=== PATIENT | male | born 1945 | race Caucasian/White ===

== ENCOUNTER → 2018-06-03 | Outpatient (REF) | payer MEDICARE ==
[~2018-06-03] MED LIST: B COMPLE1 PO; CLARITIN10 MG PO; MULTIVITAM10 PO; SELENIMIN PO; [UNRECOGNIZED DRUG - OTHER] PO
[2018-06-03 11:14] LABS: HEMATOCRIT 45.6 % (39.0-50.0); MEAN CELL VOLUME 93.4 fL CALC (80.0-100.0); MEAN CORPUSCULAR HGB 30.7 pG CALC (26.0-32.0); MEAN CORPUSCULAR HGB CONC 32.9 g/L CALC (32.0-36.0); RED BLOOD COUNT 4.88 mill/uL (4.70-6.10); RED CELL DISTRI WIDTH 11.8 % (11.5-15.5)
[2018-06-03 11:38] LABS: ALBUMIN 4.7 g/dL (3.2-5.0); ALKALINE PHOSPHATASE 55 u/l (38-126); ANION GAP 16 (6-22 (CALC)); BILIRUBIN, TOTAL 0.4 mg/dL (0.0-1.4); BUN 8 mg/dL (8-23); BUN/CREATININE RATIO 10 (12-20 (CALC)); CALCULATED LDLCHOLESTEROL 99 mg/dL (62-129 (CALC)); CARBON DIOXIDE 29 mmol/l (22-30); CHLORIDE 94 mmol/l (95-108); CHOLESTEROL HDL RATIO 2.8 (<4.4 (CALC)); CREATININE 0.8 mg/dL (0.7-1.3); GFR > 60 ML/MIN (>=60 (CALC)); GFR FOR AFR.AMER. > 60 ML/MIN (>=60 (CALC)); HDL CHOLESTEROL 65 mg/dL (>=40); POTASSIUM 4.9 mmol/l (3.5-5.1); SGOT/AST 17 u/l (19-48); SODIUM 134 mmol/l (137-146); TOTAL CHOLESTEROL 179 mg/dl (0-199); TOTAL PROTEIN 7.1 g/dL (6.3-8.2); TOTAL TRIGLYCERIDES 79 mg/dl (30-149); VLDL CHOLESTROL 16 mg/dl (0-38 (CALC))
== END | disposition home or self-care (01) ==
LOC: LAB 10:03
PROVIDERS: ATTEND Internal Medicine
DX: E11.29 Type 2 diabetes mellitus with other diabetic kidney complication (principal); E78.49 Other hyperlipidemia; I10 Essential (primary) hypertension

== ENCOUNTER 2021-10-02 23:33 | Emergency (ER) | payer MEDICARE ==
[~2021-10-02] VITALS: Ht 188 cm; Wt 90.0 kg
[2021-10-02 23:53] VITALS: BP 134/72
[2021-10-03] VITALS (7 sets, daily range): BP systolic 105–140; BP diastolic 60–69
[2021-10-03] MEDS ORDERED: METFORMIN HCL500 M2 PO (00:24)
[2021-10-03] MEDS ORDERED: LOSARTAN POTASS50 MG PO (00:24)
[2021-10-03] MEDS ORDERED: METOPROLOL SUCC50 MG PO (00:25)
[2021-10-03] MEDS ORDERED: FUROSEMIDE20 MG PO (00:26)
[2021-10-03] MEDS ORDERED: PRAVASTATIN10 MG PO (00:26)
[2021-10-03] MEDS ORDERED: LISINOP/HCTZ1 TA1 PO (00:27)
[2021-10-03] MEDS ORDERED: LANTUS SOL100 UNIT/M SC (00:28)
[2021-10-03] MEDS ORDERED: ANORO ELLIPTA 61 AER IN (00:29)
[2021-10-03] MEDS ORDERED: K-TAB8 MEQ PO (00:29)
[2021-10-03] MEDS ORDERED: MULTI VIT PO (00:30)
[2021-10-03] MEDS ORDERED: ZYRTEC10 MG PO (00:30)
[2021-10-03] MEDS ORDERED: SELENIUM200 MC1 PO (00:31)
[2021-10-03] MEDS ORDERED: ASPIRIN81 MG PO (00:31)
[2021-10-03] MEDS ORDERED: STOOL SOFTENER100 M1 PO (00:32)
[2021-10-03 02:11] LABS: HEMATOCRIT 37.7 % (39.0-50.0); HEMOGLOBIN 12.3 g/dl (14.0-18.0)
== END 2021-10-03 03:00 | disposition home or self-care (01) ==
LOC: ED 23:33
PROVIDERS: Family Medicine
DX: L76.21 Postprocedural hemorrhage of skin and subcutaneous tissue following a dermatologic procedure (principal); I10 Essential (primary) hypertension; Y83.8 Other surgical procedures as the cause of abnormal reaction of the patient, or of later complication, without mention of misadventure at the time of the procedure

== ENCOUNTER 2023-05-22 13:32 | Inpatient (IN) | payer MEDICARE ==
[~2023-05-22] VITALS: Ht 182.9 cm; Wt 91.0 kg
[~2023-05-22 13:32] MED LIST changes: +ANORO ELLIPTA 61 AER IN; +ASPIRIN81 MG PO; +FUROSEMIDE20 MG PO; +K-TAB8 MEQ PO; +LANTUS SOL100 UNIT/M SC; +LISINOP/HCTZ1 TA1 PO; +LOSARTAN POTASS50 MG PO; +METFORMIN HCL500 M2 PO; +METOPROLOL SUCC50 MG PO; +MULTI VIT PO; +PRAVASTATIN10 MG PO; +SELENIUM200 MC1 PO; +STOOL SOFTENER100 M1 PO; +ZYRTEC10 MG PO
--- NOTE | 2023-05-22 14:18 | NUR ---
PT ARRIVED TO UNIT VIA WHEELCHAIR TRANSPORT.
[2023-05-22] MEDS ORDERED: KETOROLAC TROMETHAMINE 15 MG/ML SDV IV PRN (14:55)
[2023-05-22] MEDS ORDERED: LISINOPRIL 20 MG/TAB PO SCH (14:56)
[2023-05-22 15:15] LABS: BASO% 0.5 % (0-3); EOS% 3.5 % (0-8); HEMATOCRIT 43.1 % (39.0-50.0); HEMOGLOBIN 13.8 g/dl (14.0-18.0); IMMATURE GRANULOCYTES 0.5 % (0.0-5.0); LYMPH% 19.6 % (15-41); MEAN CELL VOLUME 92.3 fL CALC (80.0-100.0); MEAN CORPUSCULAR HGB 29.6 pG CALC (26.0-32.0); MONO% 9.7 % (2-13); NEUT# 5.69 thou/uL (1.82-7.42); NEUT% 66.2 % (42-76); RED BLOOD COUNT 4.67 mill/uL (4.70-6.10); RED CELL DISTRI WIDTH 12.8 % (11.5-15.5)
[2023-05-22 15:42] LABS: ALBUMIN 4.3 g/dL (3.2-5.0); ALKALINE PHOSPHATASE 72 u/l (38-126); ANION GAP 12 (6-22 (CALC)); BILIRUBIN, TOTAL 0.4 mg/dL (0.2-1.3); BUN 13 mg/dL (8-23); BUN/CREATININE RATIO 13 (12-20 (CALC)); CARBON DIOXIDE 29 mmol/l (22-30); CHLORIDE 98 mmol/l (95-108); GFR FOR AFR.AMER. > 60 ML/MIN (>=60 (CALC)); GFR OTHER RACES > 60 ML/MIN (>=60 (CALC)); POTASSIUM 4.2 mmol/l (3.5-5.1); SGOT/AST 33 u/l (19-48); SODIUM 134 mmol/l (137-146); TOTAL PROTEIN 7.2 g/dL (6.3-8.2)
[2023-05-22] MEDS ORDERED: ALUM & MAG HYDROX-SIMETHICONE 30 ML PO PRN (16:40)
[2023-05-22] MEDS ORDERED: ALBUTEROL SULFATE 2.5 MG VIAL IN PRN (16:40)
[2023-05-22] MEDS ORDERED: ACETAMINOPHEN 325 MG/TAB PO PRN (16:40)
[2023-05-22] MEDS ORDERED: LORazepam 0.5 MG/TAB PO PRN (16:40)
[2023-05-22] MEDS ORDERED: MAGNESIUM HYDROXIDE 30 ML UDC PO PRN (16:40)
[2023-05-22] MEDS ORDERED: DEXTROSE 250 ML IV PRN (16:45)
[2023-05-22] MEDS ORDERED: DEXTROSE 50% 50 ML/SYR IV PRN (16:45)
[2023-05-22] MEDS ORDERED: INSULIN LISPRO 100 UNITS/ML ML SC SCH (17:00)
[2023-05-22] MEDS ORDERED: CEFEPIME HYDROCHLORIDE 2 GM in SODIUM CHLORIDE 0.9% 100 ML IV SCH (17:00)
[2023-05-22] MEDS ORDERED: TAMSULOSIN0.4 MG PO (18:13)
[2023-05-22] MEDS ORDERED: NEBIVOLOL5 MG (18:19)
[2023-05-22] MEDS ORDERED: JARDIANCE25 MG (18:21)
[2023-05-22] MEDS ORDERED: MINOCYCLINE100 MG PO (18:23)
[2023-05-22] MEDS ORDERED: TRELEGY ELLIPTA1 AER (18:25)
--- NOTE | 2023-05-22 20:00 | NUR ---
PT RESTING NO DISTRESS NOTED DURING ASSESSMENT. VS WNL ON RA. FAMILY AT BEDSIDE. PT REPORTS NO PAIN AT THIS TIME. WOUND ON LEFT FOOT AND LEFT LOWER LEG CELLULITIS. WOUND PICTURE TAKEN AND REDNESS OUTLINES WITH PURPLE PEN. IV ABX ONGOING AT THIS TIME. CALL LIGHT WITHIN REACH. PLAN OF CARE ONGOING.
[2023-05-22 20:15] VITALS: BP 134/74
[2023-05-22] MEDS ORDERED: SIMVASTATIN 5 MG TAB PO SCH (21:00)
[2023-05-22] MEDS ORDERED: DOCUSATE CALCIUM 240 MG/CAP PO SCH (21:00)
[2023-05-22] MEDS ORDERED: ENOXAPARIN SODIUM 40 MG/0.4 ML SYR SC SCH (21:00)
--- NOTE | 2023-05-23 | NUR ---
PT RESTING NO DISTRESS NOTED ON EXAM. FAMILY MEMEBER AT BEDSIDE. CALL LIGHT WITHIN REACH. PLAN OF CARE ONGOING.
[2023-05-23 00:44] VITALS: BP 122/65
[2023-05-23 04:11] VITALS: BP 129/62
--- NOTE | 2023-05-23 04:20 | NUR ---
PT RESTING NO DISTRESS NOTED ON EXAM. FAMILY MEMBER AT BEDSIDE. NO PT REPORTED AT THIS TIME. CALL LIGHT WITHIN REACH. PLAN OF CARE ONGOING.
[2023-05-23 05:02] LABS: BASO% 0.5 % (0-3); EOS% 5.8 % (0-8); HEMATOCRIT 40.2 % (39.0-50.0); HEMOGLOBIN 12.9 g/dl (14.0-18.0); IMMATURE GRANULOCYTES 0.5 % (0.0-5.0); LYMPH% 25.2 % (15-41); MEAN CELL VOLUME 92.2 fL CALC (80.0-100.0); MEAN CORPUSCULAR HGB 29.6 pG CALC (26.0-32.0); MEAN CORPUSCULAR HGB CONC 32.1 g/dL CAL (32.0-36.0); MONO% 11.7 % (2-13); NEUT# 3.66 thou/uL (1.82-7.42); NEUT% 56.3 % (42-76); RED BLOOD COUNT 4.36 mill/uL (4.70-6.10); RED CELL DISTRI WIDTH 12.8 % (11.5-15.5)
[2023-05-23 05:19] LABS: ALBUMIN 3.5 g/dL (3.2-5.0); ALKALINE PHOSPHATASE 68 u/l (38-126); ANION GAP 9 (6-22 (CALC)); BILIRUBIN, TOTAL 0.3 mg/dL (0.2-1.3); BUN 14 mg/dL (8-23); BUN/CREATININE RATIO 16 (12-20 (CALC)); CARBON DIOXIDE 28 mmol/l (22-30); CHLORIDE 100 mmol/l (95-108); CREATININE 0.9 mg/dL (0.7-1.3); GFR FOR AFR.AMER. > 60 ML/MIN (>=60 (CALC)); GFR OTHER RACES > 60 ML/MIN (>=60 (CALC)); POTASSIUM 3.5 mmol/l (3.5-5.1); SGOT/AST 33 u/l (19-48); SODIUM 133 mmol/l (137-146); TOTAL PROTEIN 6.1 g/dL (6.3-8.2)
[2023-05-23 07:05] VITALS: BP 157/71
--- NOTE | 2023-05-23 07:34 | NUR ---
PT AOX3, LUNGS CLEAR, NON PRODUCTIVE COUGH WITH DEEP BREATHS, BOWEL SOUNDS PRESENT, LEFT FOOT/LEG REDNESS MARKED WITH SKIN MARKER, FOOT WOUND WRAPPED, PT DENIES PAIN AT THIS TIME. WILL CONTUINE TO MONITOR.
[2023-05-23] MEDS ORDERED: ASPIRIN 81 MG/TAB PO SCH (09:00)
[2023-05-23] MEDS ORDERED: TAMSULOSIN HCL 0.4 MG CAP PO SCH (09:00)
[2023-05-23] MEDS ORDERED: FUROSEMIDE 20 MG/TAB PO SCH (09:00)
[2023-05-23] MEDS ORDERED: INSULIN DETEMIR 100 UNITS/ML SC SCH (09:00)
[2023-05-23] MEDS ORDERED: POTASSIUM CHLORIDE 10 MEQ/TAB PO SCH (09:00)
[2023-05-23] MEDS ORDERED: METOPROLOL SUCCINATE 50 MG/TAB PO SCH (09:00)
[2023-05-23] MEDS ORDERED: LOSARTAN Potassium 50 MG/TAB PO SCH (09:00)
--- NOTE | 2023-05-23 10:26 | NUR ---
DR BECKER AT BEDSIDE DISCUSSING PLAN OF CARE WITH PT AND PT'S .
--- NOTE | 2023-05-23 11:22 | NUR ---
DR HERNANDEZ AT BEDSIDE DISCUSSING PLAN OF CARE WITH PT AND PT'S .
--- NOTE | 2023-05-23 11:35 | NUR ---
VERBAL ORDER TAKEN FROM DR DUMONT FOR BETADINE DRESSING COVERED WITH GAUZE AND WRAPPED WITH KURLEX. PT IS TO BE NPO AT MIDNIGHT.
--- NOTE | 2023-05-23 13:56 | NUR ---
2X2 BETADINE DRESSING APPLIED TO BROKEN BLISTER ON LEFT FOOT COVERED BY DRY GAUZE AND WRAPPED WITH KURLEX. PT TOLERATED WITHOUT ANY COMPLAINTS OF PAIN OR DISCOMFORT. PT SITTING UP IN CHAIR WITH FOOT ELEVATED AT THIS TIME. WILL CONTUINE TO MONITOR.
[2023-05-23 16:22] VITALS: BP 161/84
--- NOTE | 2023-05-23 20:00 | NUR ---
PT RESTING IN CHAIR NO DISTRESS NOTED DURING ASSESSMENT. IV SITE CHECKED AND FLUSHED. CALL LIGHT WITHIN REACH. PLAN OF CARE ONGOING.
[2023-05-23 20:11] VITALS: BP 171/88
[2023-05-24 01:10] VITALS: BP 142/66
--- NOTE | 2023-05-24 04:17 | NUR ---
PT SLEEPING NO DISTRESS NOTED ON EXAM. CALL LIGHT WITHIN REACH. PLAN OF CARE ONGOING.
[2023-05-24 04:29] VITALS: BP 141/61
[2023-05-24 04:37] LABS: BASO% 0.6 % (0-3); EOS% 8.5 % (0-8); HEMATOCRIT 41.3 % (39.0-50.0); HEMOGLOBIN 13.3 g/dl (14.0-18.0); IMMATURE GRANULOCYTES 0.5 % (0.0-5.0); LYMPH% 26.9 % (15-41); MEAN CORPUSCULAR HGB 29.6 pG CALC (26.0-32.0); MEAN CORPUSCULAR HGB CONC 32.2 g/dL CAL (32.0-36.0); NEUT# 3.36 thou/uL (1.82-7.42); NEUT% 52.5 % (42-76); RED BLOOD COUNT 4.49 mill/uL (4.70-6.10); RED CELL DISTRI WIDTH 12.8 % (11.5-15.5)
[2023-05-24 04:53] LABS: ALBUMIN 3.6 g/dL (3.2-5.0); ALKALINE PHOSPHATASE 63 u/l (38-126); ANION GAP 11 (6-22 (CALC)); BILIRUBIN, TOTAL 0.3 mg/dL (0.2-1.3); BUN 11 mg/dL (8-23); BUN/CREATININE RATIO 13 (12-20 (CALC)); CARBON DIOXIDE 26 mmol/l (22-30); CHLORIDE 100 mmol/l (95-108); CREATININE 0.9 mg/dL (0.7-1.3); GFR FOR AFR.AMER. > 60 ML/MIN (>=60 (CALC)); GFR OTHER RACES > 60 ML/MIN (>=60 (CALC)); MAGNESIUM 2.1 mg/dL (1.6-2.3); POTASSIUM 3.8 mmol/l (3.5-5.1); SGOT/AST 33 u/l (19-48); SODIUM 133 mmol/l (137-146); TOTAL PROTEIN 6.2 g/dL (6.3-8.2)
[2023-05-24 07:30] VITALS: BP 158/78
--- NOTE | 2023-05-24 07:35 | NUR ---
pt awake in bed; no apparent distress noted; assessment completed at this time; spouse at bedside; pt alert and oriented; denies pain; no n/v noted; resp even and unlabored; lungs coarse post; skin color wnl; ra; hr reg; weak pedal pulses; ble edema noted; redness noted to lle; abd soft/distended with bs present; no bm noted per story writer; no urine to inspect at this time; #22 to lfa saline locked; no redness or edema noted; dressing to left foot intact; npo; call light within reach; will continue to monitor
--- NOTE | 2023-05-24 11:27 | NUR ---
wound/blister to medial left foot cleansed wtih saline; betadine wet to dry dressing placed; secured with kerlix; will continue to monitor
--- NOTE | 2023-05-24 12:00 | NUR ---
awake in recliner; no apparent distress noted; family at bedside; call light within reach; will continue to monitor
[2023-05-24 14:50] VITALS: BP 148/78
--- NOTE | 2023-05-24 16:00 | NUR ---
pt awake in recliner; offers no complaints; multiple visitors at bedside; iv intact; call light within reach
--- NOTE | 2023-05-24 18:00 | NUR ---
pt with complaints of dressing to left foot too tight; re-dressed as per request; call light within reach
--- NOTE | 2023-05-24 19:00 | NUR ---
PT RESTING IN CHAIR NO DISTRESS NOTED ON ASSESSMENT. VS WNL ON RA. FAMILY AT BEDSIDE. NEW IV PLACED ON LEFT WRIST 22G SL. LEFT FOOT DRESSING CHANGED DUE TO IT FALL OFF. PT REPORTS NO PAIN AT THIS TIME. CALL LIGHT WITHIN REACH. PLAN OF CARE ONGOING.
--- NOTE | 2023-05-25 | NUR ---
PT SLEEPING IN BED NO DISTRESS NOTED ON EXAM. CALL LIGHT WITHIN REACH. PLAN OF CARE ONGOING.
[2023-05-25 03:33] VITALS: BP 171/79
--- NOTE | 2023-05-25 04:00 | NUR ---
PT SLEEPING NO DISTRESS NOTED ON EXAM. CALL LIGHT WITHIN REACH. PLAN OF CARE ONGOING.
[2023-05-25 05:34] LABS: BASO% 0.4 % (0-3); EOS% 7.3 % (0-8); HEMATOCRIT 40.3 % (39.0-50.0); HEMOGLOBIN 13.4 g/dl (14.0-18.0); IMMATURE GRANULOCYTES 0.7 % (0.0-5.0); LYMPH% 29.2 % (15-41); MEAN CELL VOLUME 90.6 fL CALC (80.0-100.0); MEAN CORPUSCULAR HGB 30.1 pG CALC (26.0-32.0); MEAN CORPUSCULAR HGB CONC 33.3 g/dL CAL (32.0-36.0); MONO% 10.2 % (2-13); NEUT# 3.81 thou/uL (1.82-7.42); NEUT% 52.2 % (42-76); RED BLOOD COUNT 4.45 mill/uL (4.70-6.10); RED CELL DISTRI WIDTH 12.6 % (11.5-15.5)
[2023-05-25 05:46] LABS: ALBUMIN 3.6 g/dL (3.2-5.0); ALKALINE PHOSPHATASE 64 u/l (38-126); ANION GAP 9 (6-22 (CALC)); BILIRUBIN, TOTAL 0.2 mg/dL (0.2-1.3); BUN 9 mg/dL (8-23); BUN/CREATININE RATIO 12 (12-20 (CALC)); CARBON DIOXIDE 28 mmol/l (22-30); CHLORIDE 97 mmol/l (95-108); CREATININE 0.8 mg/dL (0.7-1.3); GFR FOR AFR.AMER. > 60 ML/MIN (>=60 (CALC)); GFR OTHER RACES > 60 ML/MIN (>=60 (CALC)); POTASSIUM 4.1 mmol/l (3.5-5.1); SGOT/AST 34 u/l (19-48); SODIUM 131 mmol/l (137-146); TOTAL PROTEIN 6.2 g/dL (6.3-8.2)
--- NOTE | 2023-05-25 06:00 | NUR ---
DRESSING CHANGED LEFT FOOT.
[2023-05-25 06:47] VITALS: BP 158/78
--- NOTE | 2023-05-25 06:55 | NUR ---
REPORT RECEIVED FROM TONNYRN
--- NOTE | 2023-05-25 08:10 | NUR ---
PT RESTING IN SEMI FOWLERS POSITION, A&O X3 AND LITTLE SHELL TRIBE NOTED;RESPIRATIONS EVEN AND UNLABORED ON RA;PT DENIES ANY CURRENT PAIN OR NEEDS;ASSESSMENT COMPLETED AND URINE SAMPLE OBTAINED PER ORDER; IV SITE PATENT;ACCUCHECK 170;PT DENIES ANY ADDITIONAL NEEDS AND IS ENCOURAGED TO CALL FOR ASSISTANCE IF NEEDED;FALL PRECAUTIONS IN PLACE WITH BED IN THE LOWEST POSITION AND CALL LIGHT IN REACH;FREQUENT ROUNDS MADE.
[2023-05-25] MEDS ORDERED: amLODIPine BESYLATE 5 MG/TAB PO SCH (09:00)
--- NOTE | 2023-05-25 11:35 | NUR ---
PT OOB RESTING IN RECLINER;RESPIRATIONS EVEN AND UNLABORED ON RA;PT DENIES ANY CURRENT PAIN OR NEEDS;IV SITE PATENT;DRESSING TO LLE CDI;ACCUCHECK 176, AND PT COVERED WITH SLIDING SCALE INSULIN PER ORDER;PT ENCOURAGED TO CALL FOR ASSISTANCE IF NEEDED;CALL LIGHT IN REACH;FREQUENT ROUNDS MADE.
[2023-05-25 11:50] LABS: URINE BILIRUBIN - DIPSTICK Negative (NEGATIVE); URINE BLOOD DIPSTICK Negative (NEGATIVE); URINE COLOR Yellow; URINE GLUCOSE - DIPSTICK >=1000 mg/dL (NEGATIVE); URINE KETONE Negative (NEGATIVE); URINE LEUK ESTERASE Negative (NEGATIVE); URINE NITRITE - DIPSTICK Negative (Negative); URINE PROTEIN - DIPSTICK Negative (NEG-TRACE); URINE UROBILINOGEN - DIPSTICK 0.2 E.U./dL (0.2)
--- NOTE | 2023-05-25 11:54 | NUR ---
AT BEDSIDE DISCUSSING POC WITH PT
--- NOTE | 2023-05-25 15:40 | NUR ---
PT OOB RESTING IN RECLINER WITH FAMILY AT BEDSIDE;RESPIRATIONS EVEN AND UNLABORED ON RA;PT DENIES ANY CURRENT PAIN OR NEEDS;IV SITE PATENT;DRESSING TO LEFT FOOT CDI;PT ENCOURAGED TO CALL FOR ASSISTANCE IF NEEDED;FALL PRECAUTIONS REMAIN IN PLACE WITH CALL LIGHT IN REACH;FREQUENT ROUNDS MADE.
[2023-05-25 16:40] VITALS: BP 152/80
[2023-05-25 19:07] VITALS: BP 158/78
--- NOTE | 2023-05-25 19:30 | NUR ---
PATIENT SITTING UP IN RECLINER AT THIS TIME WITH FAMILY VISITING. AWAKE ALERT AND ORIENTEDX3. PATIENT WITH IV SITE TO LEFT WRIST INTACT. DRESSING TO LEFT FOOT IS INTACT-SECURED WITH COBAN. PATIENT DENIES ANY PAIN AT THIS TIME. CALL LIGHT IN REACH. WILL CONT TO MONITOR.
--- NOTE | 2023-05-25 21:30 | NUR ---
PATIENT REMAINS UP IN RECLINER. BLOOD SUGAR WAS 234. PATIENT REFUSED HUMALOG COVERAGE BECAUSE HE STATES THAT HE HAD JUST HAD SOMETHING TO EAT PRIOR TO HAVING HIS BLOOD SUGAR TAKEN. REINFORCED THE NEED FOR NORMAL BS FOR PROPER HEALING. OFFERED TO CHANGE LEFT FOOT DRESSING BUT PATIENT STATES THAT IT WAS JUST CHANGED THIS MORNING AND DOESN'T NEED TO BE CHANGED AGAIN TONIGHT. WILL OFFER TO CHANGE IN AM. PATIENT WITH WHEEZING NOTED TO BOTH LUNGS-STATES THAT HE IS ALWAYS WHEEZING AND CONT TO USE SNUFF. ABD IS DISTENDED AND FIRM-STATES THAT HE DID HAVE BM TODAY. INSTRUCTED THAT HE NEEDS TO USE URINAL FOR ACCURATE I&O. PATIENT IS ON LASIX. VERBALIZES UNDERSTANDING. SAFETY PRECAUTIONS REINFORCED. CALL LIGHT IN REACH. WILL CONT TO MONITOR.
--- NOTE | 2023-05-26 00:12 | NUR ---
PATIENT RESTING IN BED WITH EYES CLOSED. RESPS ARE EVEN AND UNLABORED. CALL LIGHT IN REACH. WILL CONT TO MONITOR.
[2023-05-26 03:37] VITALS: BP 174/85
--- NOTE | 2023-05-26 04:52 | NUR ---
RESTING IN BED AND ASKING FOR NIGHT LIGHT OFF. NO OTHER COMPLAINTS. CALL LIGHT IN REACH. WILL CONT TO MONITOR.
[2023-05-26 04:54] LABS: BASO% 0.8 % (0-3); EOS% 8.6 % (0-8); HEMATOCRIT 43.7 % (39.0-50.0); HEMOGLOBIN 14.2 g/dl (14.0-18.0); IMMATURE GRANULOCYTES 1.4 % (0.0-5.0); LYMPH% 26.2 % (15-41); MEAN CORPUSCULAR HGB 29.9 pG CALC (26.0-32.0); MEAN CORPUSCULAR HGB CONC 32.5 g/dL CAL (32.0-36.0); MONO% 9.6 % (2-13); NEUT# 4.1 thou/uL (1.82-7.42); NEUT% 53.4 % (42-76); RED BLOOD COUNT 4.75 mill/uL (4.70-6.10); RED CELL DISTRI WIDTH 12.3 % (11.5-15.5)
[2023-05-26 05:04] LABS: ALBUMIN 3.9 g/dL (3.2-5.0); ALKALINE PHOSPHATASE 68 u/l (38-126); ANION GAP 13 (6-22 (CALC)); BUN 10 mg/dL (8-23); BUN/CREATININE RATIO 11 (12-20 (CALC)); CARBON DIOXIDE 28 mmol/l (22-30); CHLORIDE 96 mmol/l (95-108); CREATININE 0.9 mg/dL (0.7-1.3); GFR FOR AFR.AMER. > 60 ML/MIN (>=60 (CALC)); GFR OTHER RACES > 60 ML/MIN (>=60 (CALC)); POTASSIUM 4.2 mmol/l (3.5-5.1); SGOT/AST 37 u/l (19-48); SODIUM 133 mmol/l (137-146); TOTAL PROTEIN 6.8 g/dL (6.3-8.2)
[2023-05-26 05:13] LABS: BILIRUBIN, TOTAL 0.3 mg/dL (0.2-1.3)
--- NOTE | 2023-05-26 07:05 | NUR ---
REPORT RECEIVED FROM KRYSTIN DUBON
[2023-05-26 07:46] VITALS: BP 142/73
--- NOTE | 2023-05-26 08:40 | NUR ---
PT OOB RESTING IN RECLINER,A&O X3 WITH LOWER BRULE NOTED;PT DENIES ANY CURRENT PAIN OR DISCOMFORTS,PAIN SCALE AND REPORTING EDUCATED;ASSESSMENT COMPLETED;RESPIRATIONS EVEN AND UNLABORED ON RA,CLEAR LUNG SOUNDS;ABDOMEN DISTENDED/SOFT ON PALPATION AND ACTIVE IN ALL 4 QUADRANTS;CELLULITIS NOTED TO LLE AND DRESSING TO LEFT FOOT REMAINS CDI;#22G TO LW FLUSHED AND PATENT,SITE APPEARS HEALTHY;ACCUCHECK 145, NO COVERAGE NEEDED;PT DENIES ANY ADDITIONAL NEEDS AND IS ENCOURAGED TO CALL FOR ASSISTANCE IF NEEDED;FALL PRECAUTIONS IN PLACE WITH CALL LIGHT IN REACH;FREQUENT ROUNDS MADE.
--- NOTE | 2023-05-26 11:45 | NUR ---
PT OOB RESTING IN RECLINER WITH SPOUSE AT BEDSIDE;PT DENIES ANY CURRENT PAIN OR DISCOMFORTS;RESPIRATIONS REMAIN EVEN AND UNLABORED ON RA;ACCUCHECK 170, PPT REFUSES INSULIN COVERAGE;DRESSING CHANGE PROVIDED TO LLE PER ORDER, PT TOLERATED WELL;PT DENIE ANY ADDITIONAL NEEDS AND IS ENCOURAGED TO CALL FOR ASSISTANCE IF NEEDED;FALL PRECAUTIONS IN PLACE WITH CALL LIGHT IN REACH;FREQUENT ROUNDS MADE.
[2023-05-26 14:34] VITALS: BP 148/82
--- NOTE | 2023-05-26 15:40 | NUR ---
PT OOB RESTING IN RECLINER WITH MULTIPLE FAMILY MEMBERS AT BEDSIDE;RESPIRATIONS EVEN AND UNLABORED ON RA;PT DENIES ANY CURRENT PAIN OR NEEDS;DRESSING TO LEFT FOOT REMAINS CDI;ENCOURAGED TO CALL FOR ASSISTANCE IF NEEDED;CALL LIGHT IN REACH;FREQUENT ROUNDS MADE.
[2023-05-26 16:27] VITALS: BP 148/42
[2023-05-26 19:25] VITALS: BP 141/69
--- NOTE | 2023-05-26 19:30 | NUR ---
PATIENT SITTING UP IN RECLINER-AWAKE ALERT AND ORIENTEDX3. PATIENT IS [place]. NO COMPLAINTS AT THIS TIME. NO PAIN. DRESSING TO LEFT FOOT INTACT AND SECURED WITH COBAN WRAP. ENCOURAGED PATIENT TO ELEVATE THE FOOT WHEN POSSIBLE. PATIENT INSTRUCTED NPO AFTER MN TONIGHT FOR POSS PROCEDURE TOMORROW WITH DR. GARCIA. SALINE LOCK TO LEFT WRIST WITH GOOD BLOOD RETURN WHEN FLUSHED. PATIENT STATES THAT HE IS VOIDING WITHOUT ANY DIFFICULTY AND DID HAVE BM TODAY. SAFETY PRECAUTIONS REINFORCED. CALL LIGHT IN REACH. WILL CONT TO MONITOR.
--- NOTE | 2023-05-26 21:00 | NUR ---
BLOOD SUGAR 234-PATIENT AGAIN IS STATING THAT HE HAD JUST HAD SOMETHING TO EAT WHEN BLOOD SUGAR WAS TAKEN AND REFUSED HUMALOG SS COVERAGE AGAIN TONIGHT, CALL LIGHT IN REACH. WILL CONT TO MONITOR.
--- NOTE | 2023-05-27 00:44 | NUR ---
PATIENT RESTING IN BED POSITIONED ON LEFT SIDE WITH EYES CLOSED. RESPS ARE NOISY. MAXIPINE HUNG ORDERED VIA LEFT WRIST SALINE LOCK. CALL LIGHT IN REACH. WILL CONT TO MONITOR.
--- NOTE | 2023-05-27 04:06 | NUR ---
PATIENT CALLED AND STATES "SOMEONE TOOK MY WATER"-REMINDED PATIENT THAT HE IS NPO FOR POSSIBLE PROCEDURE TODAY WITH DR. GARCIA. SALINE LOCK TO LEFT WRIST INTACT. CALL LIGHT IN REACH. WILL CONT TO MONITOR.
[2023-05-27 04:50] LABS: BASO% 0.8 % (0-3); EOS% 8.6 % (0-8); HEMATOCRIT 41.8 % (39.0-50.0); HEMOGLOBIN 13.6 g/dl (14.0-18.0); IMMATURE GRANULOCYTES 1.1 % (0.0-5.0); LYMPH% 27.9 % (15-41); MEAN CELL VOLUME 91.1 fL CALC (80.0-100.0); MEAN CORPUSCULAR HGB 29.6 pG CALC (26.0-32.0); MEAN CORPUSCULAR HGB CONC 32.5 g/dL CAL (32.0-36.0); MONO% 9.8 % (2-13); NEUT# 3.78 thou/uL (1.82-7.42); NEUT% 51.8 % (42-76); RED BLOOD COUNT 4.59 mill/uL (4.70-6.10); RED CELL DISTRI WIDTH 12.4 % (11.5-15.5)
[2023-05-27 04:54] LABS: INTERNATIONAL NORMALIZED RATIO 1.1 RATIO (0.7-1.3); PROTHROMBIN TIME 10.1 SECONDS (9.0-12.5)
[2023-05-27 05:04] LABS: ALBUMIN 3.8 g/dL (3.2-5.0); ALKALINE PHOSPHATASE 73 u/l (38-126); ANION GAP 9 (6-22 (CALC)); BILIRUBIN, TOTAL 0.2 mg/dL (0.2-1.3); BUN 12 mg/dL (8-23); BUN/CREATININE RATIO 15 (12-20 (CALC)); CARBON DIOXIDE 28 mmol/l (22-30); CHLORIDE 98 mmol/l (95-108); CREATININE 0.8 mg/dL (0.7-1.3); GFR FOR AFR.AMER. > 60 ML/MIN (>=60 (CALC)); GFR OTHER RACES > 60 ML/MIN (>=60 (CALC)); POTASSIUM 4.1 mmol/l (3.5-5.1); SGOT/AST 45 u/l (19-48); SODIUM 130 mmol/l (137-146); TOTAL PROTEIN 6.4 g/dL (6.3-8.2)
[2023-05-27] MEDS ORDERED: FUROSEMIDE 40 MG/4 ML SDV IV SCH (11:00)
--- NOTE | 2023-05-27 17:40 | NUR ---
EVENING MEDICAITON ADMINSITERED PER EMAR. PT REFUSED DOSE OF 1 UNIT OF INSULIN PER EMAR. PT SITTING UP IN CHAIR, DINNER TRAY SERVED. NO S/S OF DISTRESS. CALL LIGHT WITHIN REACH AND SAFETY PRECAUTIONS IN PLACE.
[2023-05-27 19:14] VITALS: BP 138/70
--- NOTE | 2023-05-27 20:00 | NUR ---
PATIENT SITTING UP IN RECLINER AT THIS TIME-AWAKE ALERT AND ORIENTED WITH NO COMPLAINTS AT THIS ITME.IV SITE TO LEFT WRIST INTACT. DRESSING TO LEFT FOOT INTACT AND SECURED WITH ANDREI WRAP-NO SURGERY TODAY AND WILL PROBABLY DISCHARGE HOME TOMORROW TO F/UP WITH DR. GARCIA. PATIENT STATES THAT HE IS VOIDING WITHOUT ANY [id number] WITH STRICT I&O. STATES THAT HE DID HAVE BM TODAY. LUNGS ARE CLEAR. AND IS DISTENDED AND FIRM WITH ACTIVE BS. ENCOURAGED PATIENT TO KEEP LEFT FOOT ELEVATED WHEN POSSIBLE. NO PAIN. SAFETY PRECAUTIONS REINFORCED. CALL LIGHT IN REACH. WILL CONT TO MONITOR.
--- NOTE | 2023-05-27 21:00 | NUR ---
BLOOD SUGAR TONIGHT IS ELEVATED AGAIN TONIGHT AT 275. AGAIN PATIENT STATES THAT HE HAS JUST HAD SOMETHING TO EAT. AGAIN TONIGHT HE REFUSED HUMALOG SS COVERAGE EVEN AFTER EDUCATION REGUARDING NORMAL BLOOD SUGAR TO PROMOTE WOUND HEALING. PATIENT IS NOT ALWAYS COMPLIANT WITH CARE. REMAINS SITTING UP RECLINER. CALL LIGHT IN REACH. WILL CONT TO MONITOR.
--- NOTE | 2023-05-27 22:38 | NUR ---
PATIENT RESTING IN BED-EYES ARE CLOSED. CALL LIGHT IN REACH. WILL CONT TO MONITOR.
--- NOTE | 2023-05-28 03:33 | NUR ---
PATIENT RESTING IN BED AT TH IS TIME WITH EYES CLOSED. NOISEY BREATHING AT TIMES. SALINE LOCK TO LEFT WRIST INTACT. CALL LIGHT IN REACH. WILL CONT TO MONITOR.
[2023-05-28 05:19] VITALS: BP 163/84
[2023-05-28 05:49] LABS: BASO% 0.8 % (0-3); EOS% 6.2 % (0-8); HEMATOCRIT 44.7 % (39.0-50.0); HEMOGLOBIN 14.5 g/dl (14.0-18.0); IMMATURE GRANULOCYTES 0.9 % (0.0-5.0); LYMPH% 23.8 % (15-41); MEAN CELL VOLUME 91.2 fL CALC (80.0-100.0); MEAN CORPUSCULAR HGB 29.6 pG CALC (26.0-32.0); MEAN CORPUSCULAR HGB CONC 32.4 g/dL CAL (32.0-36.0); MONO% 8.7 % (2-13); NEUT# 4.42 thou/uL (1.82-7.42); NEUT% 59.6 % (42-76); RED BLOOD COUNT 4.9 mill/uL (4.70-6.10); RED CELL DISTRI WIDTH 12.3 % (11.5-15.5)
[2023-05-28 06:05] LABS: ALBUMIN 4.2 g/dL (3.2-5.0); ALKALINE PHOSPHATASE 71 u/l (38-126); ANION GAP 10 (6-22 (CALC)); BUN 12 mg/dL (8-23); BUN/CREATININE RATIO 13 (12-20 (CALC)); CARBON DIOXIDE 30 mmol/l (22-30); CHLORIDE 95 mmol/l (95-108); GFR FOR AFR.AMER. > 60 ML/MIN (>=60 (CALC)); GFR OTHER RACES > 60 ML/MIN (>=60 (CALC)); POTASSIUM 4.5 mmol/l (3.5-5.1); SGOT/AST 67 u/l (19-48); SODIUM 131 mmol/l (137-146)
[2023-05-28 06:21] LABS: BILIRUBIN, TOTAL 0.3 mg/dL (0.2-1.3)
[2023-05-28 06:49] VITALS: BP 158/74
--- NOTE | 2023-05-28 07:06 | NUR ---
PT RESTING IN LOW FOWLERS POSITION . PT A/O NOT ON TELE . RESPIRATIONS ON ROOM AIR. IV SITE NOTED. PT DENIES ADDITIONAL NEEDS AT THE TIME ALL SAFETY PRECAUTINS IN PLACE WITH CALL LIGHT IN REACH.
[2023-05-28 07:59] VITALS: BP 158/74
[2023-05-28] MEDS ORDERED: CIPROFLOXACN500 MG PO (11:38)
[2023-05-28] MEDS ORDERED: VIBRAMYCIN100 M2 PO (11:39)
[2023-05-28] MEDS ORDERED: SURFAK240 MG/CAP PO (11:40)
--- NOTE | 2023-05-28 12:12 | NUR ---
Discharge instructions given. Patient verbalizes understanding of same. Discharged in stable condition via Wheelchair to Home with staff. All belongings sent with pt. IV REMOVED NO TELE.
== END 2023-05-28 12:08 | disposition home or self-care (01) | DRG 603 ==
LOC: MS2 13:32
PROVIDERS: Internal Medicine; Nurse Practitioner Family; ADMIT Student in an Organized Health Care Education/Training Program; ATTEND Student in an Organized Health Care Education/Training Program
DX: L03.116 Cellulitis of left lower limb (principal); E11.51 Type 2 diabetes mellitus with diabetic peripheral angiopathy without gangrene; E11.621 Type 2 diabetes mellitus with foot ulcer; I70.245 Atherosclerosis of native arteries of left leg with ulceration of other part of foot; L97.521 Non-pressure chronic ulcer of other part of left foot limited to breakdown of skin; I11.0 Hypertensive heart disease with heart failure; I50.9 Heart failure, unspecified; E11.42 Type 2 diabetes mellitus with diabetic polyneuropathy; J44.9 Chronic obstructive pulmonary disease, unspecified; F17.220 Nicotine dependence, chewing tobacco, uncomplicated; Z79.4 Long term (current) use of insulin; Z79.84 Long term (current) use of oral hypoglycemic drugs
CPT/HCPCS: J0692; J1650; J2020; L3260

== ENCOUNTER 2024-04-13 12:39 | Inpatient (IN) | payer MEDICARE ==
[~2024-04-13] VITALS: Ht 188 cm; Wt 93.4 kg
[~2024-04-13 12:39] MED LIST changes: +CIPROFLOXACN500 MG PO; +JARDIANCE25 MG; +MINOCYCLINE100 MG PO; +NEBIVOLOL5 MG; +SURFAK240 MG/CAP PO; +TAMSULOSIN0.4 MG PO; +TRELEGY ELLIPTA1 AER; +VIBRAMYCIN100 M2 PO
[2024-04-13 13:09] VITALS: BP 113/67
--- NOTE | 2024-04-13 13:43 | NUR ---
PT ARRIVED TO ICU BY WHEELCHAIR WITH FAMILY MEMBER AND VOLUNTEER. PT IS A DIRECT ADMIT FOR CELLULITIS OF LEFT LEG. PT IS A/O. AMBULATORY. LUNGS CLEAR UPPER, COARSE LOWER. ON RA. NO COUGH OR SOB NOTED. HEART SOUNDS S1S2; PT IS NOT ON TELEMETRY. BS ACTIVE. ABDOMEN SOFT/NON-TENDER. LAST BM TODAY. PULSES STRONG UPPER, WEAK LOWER EXTREMETIES. RIGHT LOWER LEG BRIGHT RED, MARKED AND PHOTO DOCUMENTATION ACQUIRED. IV STARTED IN LEFT ARM. PT GIVEN CALL LIGHT AND SITTING IN CHAIR. BELONGINGS WITHIN REACH. VSS AT THIS TIME.
[2024-04-13 14:04] LABS: BASO% 0.3 % (0-3); EOS% 1.6 % (0-8); HEMATOCRIT 42.2 % (39.0-50.0); HEMOGLOBIN 13.7 g/dl (14.0-18.0); IMMATURE GRANULOCYTES 3.2 % (0.0-5.0); MEAN CELL VOLUME 91.9 fL CALC (80.0-100.0); MEAN CORPUSCULAR HGB 29.8 pG CALC (26.0-32.0); MEAN CORPUSCULAR HGB CONC 32.5 g/dL CAL (32.0-36.0); MONO% 8.5 % (2-13); NEUT# 6.13 thou/uL (1.82-7.42); NEUT% 70.4 % (42-76); RED BLOOD COUNT 4.59 mill/uL (4.70-6.10); RED CELL DISTRI WIDTH 12.4 % (11.5-15.5)
[2024-04-13] MEDS ORDERED: PLAVIX75 MG PO (14:07)
[2024-04-13 14:15] LABS: ALBUMIN 3.9 g/dL (3.2-5.0); BILIRUBIN, TOTAL 0.5 mg/dL (0.2-1.3); POTASSIUM 4.2 mmol/l (3.5-5.1); TOTAL PROTEIN 6.8 g/dL (6.3-8.2)
[2024-04-13] MEDS ORDERED: ACETAMINOPHEN 325 MG/TAB PO PRN (14:25)
[2024-04-13] MEDS ORDERED: LORazepam 0.5 MG/TAB PO PRN (14:25)
[2024-04-13] MEDS ORDERED: Polyethylene Glycol 3350 17 GM/PKT PO PRN (14:25)
[2024-04-13] MEDS ORDERED: ALUM & MAG HYDROX-SIMETHICONE 30 ML PO PRN (14:25)
--- NOTE | 2024-04-13 14:42 | NUR ---
S: SUKH CATES is a 79 M who presents with cellulitis. O: VS: bp 113/67, P 89,T 97.1 W 93.6 kg, HT 74 in, Scr= 1.0,CrCl= 76 ml/min A: Blood culture is pending. P: Patient is on Vancomycin and Cefepime 2gm q12h. Vancomycin ordered for pharmacy to dose. Start Vancomycin 1gm IV Q12H. Vancomycin trough is drawn before the 4th dose on 04/15 329. Vancomycin goal trough is between <10-15 mcg/ml>. Pharmacy will follow and or advise on antibiotics use as needed.
[2024-04-13] MEDS ORDERED: CEFEPIME HYDROCHLORIDE 2 GM in SODIUM CHLORIDE 0.9% 100 ML IV SCH (15:00)
[2024-04-13] MEDS ORDERED: PRAVASTATIN40 MG PO (15:05)
[2024-04-13] MEDS ORDERED: DEXTROSE 250 ML IV PRN (15:10)
[2024-04-13] MEDS ORDERED: VANCOMYCIN HCL 1 GM in SODIUM CHLORIDE 0.9% 250 ML IV SCH (16:00)
--- NOTE | 2024-04-13 16:02 | NUR ---
NO CHANGES TO PT STATUS. ASLEEP IN CHAIR. CALL LIGHT IN REACH.
[2024-04-13 16:51] VITALS: BP 131/71
[2024-04-13 17:00] VITALS: BP 120/64
[2024-04-13] MEDS ORDERED: INSULIN LISPRO 100 UNITS/ML ML SC SCH (17:00)
[2024-04-13 19:17] VITALS: BP 119/70
--- NOTE | 2024-04-13 20:00 | NUR ---
ASSESSMENT COMPLETED. PT A + O x, SITTING UPRIGHT IN CHAIR. PICS TAKEN OF LOWER L LEG. NO COMPLAINTS/NEEDS AT THIS TIME. FLUIDS PROVIDED. V/S STABLE. CALL LIGHT IN REACH
--- NOTE | 2024-04-13 20:08 | NUR ---
pt glucose was 236 @2000. nurse was notified.
[2024-04-14 00:10] VITALS: BP 139/73
--- NOTE | 2024-04-14 01:16 | NUR ---
PT RESTING COMFORTABLY, NO COMPLAINTS/NEEDS AT THIS TIME. V/S STABLE. CALL LIGHT IN REACH
[2024-04-14 05:46] LABS: BASO% 0.4 % (0-3); HEMATOCRIT 41.7 % (39.0-50.0); HEMOGLOBIN 13.7 g/dl (14.0-18.0); IMMATURE GRANULOCYTES 2.4 % (0.0-5.0); LYMPH% 20.5 % (15-41); MEAN CELL VOLUME 93.7 fL CALC (80.0-100.0); MEAN CORPUSCULAR HGB 30.8 pG CALC (26.0-32.0); MEAN CORPUSCULAR HGB CONC 32.9 g/dL CAL (32.0-36.0); MONO% 9.3 % (2-13); NEUT# 6.23 thou/uL (1.82-7.42); NEUT% 63.4 % (42-76); RED BLOOD COUNT 4.45 mill/uL (4.70-6.10); RED CELL DISTRI WIDTH 12.5 % (11.5-15.5)
--- NOTE | 2024-04-14 05:52 | NUR ---
PT AWAKE, AMBULATED TO BR. PT UPSET DUE TO BEING HOOKED TO IV WHILE ATTEMPTING TO GO TO BR. LIMB ALERT BRACELET PLACED ON R ARM, PT STATED HE WAS TOLD TO "NEVER HAVE ANYTHING DONE ON THAT ARM," WHILE LAB WAS @ BEDSIDE. COFFEE PROVIDED TO PT PER THEIR REQUEST. JAZMINE COMPLETED. V/S STABLE. CALL LIGHT IN REACH
[2024-04-14 06:10] LABS: ALBUMIN 3.7 g/dL (3.2-5.0); BILIRUBIN, TOTAL 0.3 mg/dL (0.2-1.3); CREATININE 0.9 mg/dL (0.7-1.3); MAGNESIUM 2.2 mg/dL (1.6-2.3); POTASSIUM 3.8 mmol/l (3.5-5.1); TOTAL PROTEIN 6.5 g/dL (6.3-8.2)
--- NOTE | 2024-04-14 08:00 | NUR ---
REPORT RECEIVED FROM NIGHT NURSE. PT IS A/O. SITTING AT EDGE OF BED. LUNGS CLEAR; ON RA. NO COUGH OR SOB NOTED. HEART SOUNDS S1S2; PT IS NOT ON TELEMETRY. BS ACTIVE. ABDOMEN SOFT/NON-TENDER. PULSES WEAK ALL EXTREMETIES. SKIN W/D/I. CELLULITIS OF L LOWER LEG IS BRIGHT RED BUT DOES NOT LOOK LIKE IT HAS PROGRESSED FURTHER UP THE LEG. PT DENIES ANY PAIN. AFEBRILE. CALL LIGHT AND BELONGINGS WITHIN REACH. VSS.
[2024-04-14 08:58] VITALS: BP 112/66
[2024-04-14 09:00] VITALS: BP 122/63
[2024-04-14] MEDS ORDERED: ASPIRIN 81 MG/TAB PO SCH (09:00)
[2024-04-14] MEDS ORDERED: INSULIN GLARGINE 100 UNITS/ML SC SCH (09:00)
[2024-04-14] MEDS ORDERED: LOSARTAN Potassium 50 MG/TAB PO SCH (09:00)
[2024-04-14] MEDS ORDERED: FUROSEMIDE 20 MG/TAB PO SCH (09:00)
[2024-04-14] MEDS ORDERED: TAMSULOSIN HCL 0.4 MG CAP PO SCH (09:00)
[2024-04-14] MEDS ORDERED: CLOPIDOGREL BISULFATE 75 MG/TAB TAB PO SCH (09:00)
[2024-04-14 11:29] VITALS: BP 151/75
--- NOTE | 2024-04-14 12:00 | NUR ---
NO CHANGES TO PT STATUS. SITTING AT EDGE OF BED EATING LUNCH. ALL BELONGINGS WITHIN REACH. VSS. PT EDUCATED ON INSULIN PROTOCOL AND BLOOD SUGAR CHECKS.
--- NOTE | 2024-04-14 16:00 | NUR ---
NO CHANGES TO PT STATUS. SITTING IN CHAIR, ABX INFUSING PER MAR. PT DENIES ANY NEEDS AT THIS TIME. CALL LIGHT AND BELONGINGS WITHIN REACH. VSS.
[2024-04-14 16:21] VITALS: BP 129/64
--- NOTE | 2024-04-14 20:00 | NUR ---
ASSESSMENT COMPLETED. PT HAS NO COMPLAINTS/NEEDS AT THIS TIME. PT EDUCATED ON HUMALOG INSULIN. NO CHANGES NOTED TO L LEG. REMAINS SWOLLEN, ERYTHEMOUS, SLIGHTLY WARM TO TOUCH, HAS NOT SPREAD PAST SITE MARKING. V/S STABLE. CALL LIGHT IN REACH
[2024-04-15 00:01] VITALS: BP 117/55
--- NOTE | 2024-04-15 00:06 | NUR ---
PT SITTING UPRIGHT IN CHAIR. PT HAS NO COMPLAINTS/NEEDS AT THIS TIME. V/S STABLE. CALL LIGHT IN REACH
[2024-04-15 03:20] LABS: HEMATOCRIT 39.9 % (39.0-50.0); HEMOGLOBIN 13.1 g/dl (14.0-18.0); MEAN CELL VOLUME 90.7 fL CALC (80.0-100.0); MEAN CORPUSCULAR HGB 29.8 pG CALC (26.0-32.0); MEAN CORPUSCULAR HGB CONC 32.8 g/dL CAL (32.0-36.0); RED BLOOD COUNT 4.4 mill/uL (4.70-6.10); RED CELL DISTRI WIDTH 12.1 % (11.5-15.5)
[2024-04-15 03:37] LABS: ALBUMIN 3.7 g/dL (3.2-5.0); BILIRUBIN, TOTAL 0.4 mg/dL (0.2-1.3); CREATININE 0.9 mg/dL (0.7-1.3); MAGNESIUM 2.1 mg/dL (1.6-2.3); POTASSIUM 3.4 mmol/l (3.5-5.1); TOTAL PROTEIN 6.7 g/dL (6.3-8.2)
--- NOTE | 2024-04-15 05:35 | NUR ---
PT UP TO BR, PT HAS NO COMPLAINTS, DENIES ANY PAIN. FLUIDS PROVIDED. EDUCATED PT ON AM ABX. V/S STABLE. CALL LIGHT IN REACH
[2024-04-15] MEDS ORDERED: POTASSIUM CHLORIDE 20 MEQ/TAB PO SCH (07:30)
--- NOTE | 2024-04-15 08:00 | NUR ---
REPORT RECEIVED FROM NIGHT NURSE. PATIENT AXO X3. S1S2 NOTED, HR REGULAR. LUNG SOUNDS CLEAR, NO COUGH OR SOB NOTED. ABDOMEN SOFT, NON DISTENDED, NON TENDER, WITH ACTIVE BOWEL SOUNDS. UPPER PULSES STRONG, LOWER WEAK. LEFT LOWER EXTREMITY HOT, RED, EDEMOUS. SKIN WARM AND DRY. CALL LIGHT IN REACH.
[2024-04-15 08:13] VITALS: BP 119/63
[2024-04-15 09:48] VITALS: BP 130/68
[2024-04-15] MEDS ORDERED: VANCOMYCIN HCL 1 GM in SODIUM CHLORIDE 0.9% 250 ML IV SCH (12:00)
--- NOTE | 2024-04-15 12:00 | NUR ---
PATIENT SITTING UP IN RECLINER WATCHING TV. ALL NEEDS MET. CALL LIGHT IN REACH.
--- NOTE | 2024-04-15 13:01 | NUR ---
S: SUKH CATES is a 79 M who presents with CELLULITIS. All medications in patient's chart were reviewed. O: VS: BP 130/68, P 83, RR 18,T 97.6 F W 93kg, HT 74IN , Scr=0.9,CrCl= 75ml/min TROUGH=7 A: Blood culture is pending P: Patient is on VANCOMYCIN 1GM IV Q12H AND CEFEPIME 2GM IV Q12H Vancomycin ordered for pharmacy to dose. INCREASE Vancomycin TO 1GM IV Q8H. Vancomycin trough is drawn before the 4th dose on 04/16/24 @0330. Vancomycin goal trough is between 10-15 mcg/ml. Pharmacy will follow and or advise on antibiotics use as needed.
--- NOTE | 2024-04-15 16:00 | NUR ---
PATIENT SITTING UP IN RECLINER. FAMILY AT BEDSIDE. ALL NEEDS MET. CALL LIGHT IN REACH.
--- NOTE | 2024-04-15 20:30 | NUR ---
ASSESSMENT COMPLETE. PT SITTING UPRIGHT IN CHAIR. CELLULITUS PRESENT ON L LEG. PT HAS NO COMPLAINTS, DENIES PAIN. PT EDUCATED ON ABX SCHEDULE AND SLIDING SCALE HUMALOG. FLUIDS PROVIDED. PT UP TO BR AND BACK TO CHAIR. VANCO RUNNING PER ORDERS. V/S WNL. CALL LIGHT IN REACH.
[2024-04-15 21:18] VITALS: BP 155/83
--- NOTE | 2024-04-15 22:31 | NUR ---
IV IN LFA, 22, INFILTRATED. REMOVED IV, CATHETER INTACT. NEW IV STARTED, 22 IN LAC.
--- NOTE | 2024-04-16 | NUR ---
PT RESTING COMFORTABLY IN BED. PT HAS NO COMPLAINTS/NEEDS AT THIS TIME. NO CHANGE IN PT STATUS. CALL LIGHT IN REACH
--- NOTE | 2024-04-16 04:20 | NUR ---
PT SITTING UPRIGHT IN BED, VANCO RUNNING PER ORDERS. FLUIDS PROVIDED TO PT. HAS NO COMPLAINTS/NEEDS AT THIS TIME. CALL LIGHT IS IN REACH
[2024-04-16] MEDS ORDERED: AMOX/K CLAV875 M1 PO (07:34)
[2024-04-16] MEDS ORDERED: VIBRAMYCIN100 M2 PO (07:34)
[2024-04-16 08:00] VITALS: BP 152/76
--- NOTE | 2024-04-16 08:40 | NUR ---
Discharge instructions reviewed with patient whom verbalized understanding. Patient transported to [facility] via wheelchair.
--- NOTE | 2024-04-16 08:45 | NUR ---
Patient transported to [facility] via wheelchair.
== END 2024-04-16 08:50 | disposition home or self-care (01) | DRG 603 ==
LOC: ICU 12:39
PROVIDERS: Internal Medicine; ADMIT Internal Medicine; ATTEND Internal Medicine
DX: L03.116 Cellulitis of left lower limb (principal); C91.10 Chronic lymphocytic leukemia of B-cell type not having achieved remission; I11.0 Hypertensive heart disease with heart failure; I50.9 Heart failure, unspecified; E11.51 Type 2 diabetes mellitus with diabetic peripheral angiopathy without gangrene; E11.42 Type 2 diabetes mellitus with diabetic polyneuropathy; J44.9 Chronic obstructive pulmonary disease, unspecified; F17.220 Nicotine dependence, chewing tobacco, uncomplicated; Z92.3 Personal history of irradiation; Z79.4 Long term (current) use of insulin; Z95.820 Peripheral vascular angioplasty status with implants and grafts
CPT/HCPCS: J0692; J1815; J3370